=== PATIENT | male | born 1965 | race Caucasian/White ===

== ENCOUNTER 2022-07-28 15:18 | Emergency (ER) | payer SELFPAY ==
[~2022-07-28] VITALS: Ht 185.4 cm; Wt 102.0 kg
[2022-07-28] MEDS ORDERED: ONDANSETRON HCL 4MG/2ML INJ IV STA (15:54)
[2022-07-28] MEDS ORDERED: LORAZEPAM 1MG TABLET PO ONE (16:00)
[2022-07-28] MEDS ORDERED: SODIUM CHLORIDE 0.9% 1,000 ML IV ONE (16:00)
[2022-07-28] MEDS ORDERED: THIAMINE HCL 100MG TABLET PO ONE (16:00)
[2022-07-28 16:05] LABS: HEMATOCRIT. 41.1 % (42.0-52.0); HEMOGLOBIN. 14.5 g/dL (14.0-18.0); MEAN CORPUSCULAR HEMOGLOBIN 35.6 pg (28.0-32.0); MEAN CORPUSCULAR VOLUME 101.3 fL (80.0-94.0); MEAN PLATELET VOLUME 8.2 fl (7.4-10.4); PLATELET 115 x1000/uL (130-400); RED BLOOD CELL COUNT 4.06 mill/uL (4.7-6.1); RED CELL DISTRIBUTION WIDTH 13.6 % (11.6-14.6)
[2022-07-28 16:17] LABS: CHLORIDE 102 mEq/L (98-107)
[2022-07-28 16:26] LABS: ETHANOL BLOOD 271 mg/dL
[2022-07-28 16:35] LABS: PLATELET ESTIMATE NORMAL
[2022-07-28 16:41] LABS: CLARITY URINE CLEAR (CLEAR); COLOR URINE YELLOW (YELLOW); KETONES URINE TRACE (NEGATIVE); LEUKOCYTE ESTERASE URINE NEGATIVE (NEGATIVE); NITRITE URINE NEGATIVE (NEGATIVE); OCCULT BLOOD URINE NEGATIVE (NEGATIVE); PH URINE 5.5 (4.5-8.0); PROTEIN URINE 1+ (NEGATIVE); SPECIFIC GRAVITY URINE 1.018 (1.005-1.030)
[2022-07-28] MEDS ORDERED: POTASSIUM CHLORIDE 20MEQ/PACKET PO NR (16:45)
[2022-07-28] MEDS ORDERED: THIAMINE HCL 100MG TABLET PO NR (16:45)
[2022-07-28 16:52] LABS: *AMPHETAMINES SCREEN URINE NEGATIVE (NEGATIVE); *BARBITURATES SCREEN URINE NEGATIVE (NEGATIVE); *BENZODIAZEPINES SCREEN URINE PRESUMTIVE POSITIVE (NEGATIVE); *COCAINE SCREEN URINE NEGATIVE (NEGATIVE); CANNABINOID URINE SCREEN NEGATIVE (NEGATIVE); METHADONE URINE SCREEN NEGATIVE (NEGATIVE); OPIATES URINE SCREEN NEGATIVE (NEGATIVE); PHENCYCLIDINE URINE SCREEN NEGATIVE (NEGATIVE)
[2022-07-28] MEDS ORDERED: ONDA4TAB50 MT (17:44)
[2022-07-28] MEDS ORDERED: THIA250T3 MT (17:44)
[2022-07-28] MEDS ORDERED: VITA1CAP MT (17:44)
[2022-07-28 18:00] VITALS: BP 113/75
== END 2022-07-28 21:39 | disposition home or self-care (01) ==
LOC: ER 15:35
DX: F10.229 Alcohol dependence with intoxication, unspecified (principal); Y90.8 Blood alcohol level of 240 mg/100 ml or more; E87.6 Hypokalemia; E11.9 Type 2 diabetes mellitus without complications; F12.10 Cannabis abuse, uncomplicated
CPT/HCPCS: 36415; 80053; 80305; 80307; 80320; 80329; 81003; 82140; 83690; 85025; 96361; 96374; 99283; J2405; J7030; Z7610; G0480